=== PATIENT | female | born 1995 | race Caucasian/White ===

== ENCOUNTER 2016-12-20 08:01 | Emergency (ER) | payer BC ==
[~2016-12-20] VITALS: Ht 167.6 cm; Wt 69.4 kg
[2016-12-20 08:08] VITALS: Ht 167.6 cm; Wt 69.4 kg
[2016-12-20] MEDS ORDERED: ACETAMINOPHEN 500 MG TAB PO STA (08:44)
--- NOTE | 2016-12-20 09:19 | DIAGNOSTIC IMAGING REPORT ---
CT HEAD WITHOUT CONTRAST (CT) CLINICAL HISTORY: Head pain status post trauma COMPARISON STUDY: No previous studies for comparison. TECHNIQUE: Axial CT of the brain is performed from the vertex to the skull base. IV contrast was not administered for this examination. CT DOSE: FINDINGS: No intra or extra-axial mass lesions are visualized. There is no CT evidence of acute cortical infarction. There is no evidence of midline shift. There is no acute hemorrhage. No calvarial fractures are visualized. There is left periorbital edema. There is no evidence of pathologic ventricular dilatation. There is no evidence of acute sinusitis IMPRESSION: Left periorbital edema. Otherwise normal noncontrast head CT. Electronically signed by: Bulmaro Marie M.D. 12/20/2016 9:17 AM Dictated Date/Time: 12/20/2016 9:16 AM
--- NOTE | 2016-12-20 09:24 | DIAGNOSTIC IMAGING REPORT ---
CT FACIAL BONES-MXILLOFAC WITHOUT CT DOSE: 782.93 mGy.cm CLINICAL HISTORY: Left facial pain status post trauma COMPARISON STUDY: No previous studies for comparison. TECHNIQUE: Helical images were acquired in the transverse plane. The study was reviewed and analyzed on the independent 3-D workstation. The pterygoid plates appear intact. The zygomatic arches appear intact. The globes appear intact. There is no evidence of orbital emphysema. There is left periorbital edema. There are small air bubbles in the left premaxillary soft tissues The orbital roa and floor appear intact. The mandibular condyles appear intact. IMPRESSION: 1. No facial fractures identified. 2. Left periorbital and premaxillary edema. Small air bubbles in the soft tissues, likely secondary to a laceration. Electronically signed by: Bulmaro Marie M.D. 12/20/2016 9:22 AM Dictated Date/Time: 12/20/2016 9:18 AM
[2016-12-20] MEDS ORDERED: MULT-506 PO (09:25)
[2016-12-20] MEDS ORDERED: XYLOCAINE 1%/SOD BICARB 20 ML VIAL INFIL ONE (09:30)
[2016-12-20 09:39] VITALS: TEMP 36.9
--- NOTE | 2016-12-20 10:45 | EMERGENCY ROOM VISIT NOTE ---
ED Visit Note First contact with patient: 08:21 CHIEF COMPLAINT: Left facial injury 6 hours ago HISTORY OF PRESENT ILLNESS: Patient is an otherwise healthy 21-year-old white female who presents to the emergency department accompanied by friends for evaluation of left-sided facial trauma after a mechanical fall early this morning. Patient admits to drinking alcohol, that was in a bathroom and states that the floor was wet. She fell and hit the left side of her face on the sink. She remembers being in the bathroom, then remembers people tending to her on the floor. She had bleeding from the left side of her face. Friends who were with her at that time a company her now and they deny that she lost consciousness. There was no seizure-like behavior. Patient was walked home by a friend, and went to bed. When she woke up this morning she applied ice to her face. She complains of a mild generalized headache, but primarily left- sided facial discomfort and tightness due to the swelling and bruising. The left eye is almost completely swollen shut, but she denies any left eye pain or changes in vision. She denies any neck pain, nausea or vomiting. No difficulty with balance, speech or coordination and her friends state that she has been acting appropriately since they have been with her this morning. She denies any chipped or loose teeth, and states that the bite does not feel off when she opens and closes her jaw. She does not believe she experienced any epistaxis REVIEW OF SYSTEMS: Review of systems as per HPI. All other systems reviewed were negative. 10 systems reviewed. PMH: Electronic medical records are reviewed and summarized as above/below. See Problem List. Tetanus is up-to-date. SOCIAL HISTORY: Patient lives at home. College student. Nonsmoker, social EtOH. PHYSICAL EXAM: Vital Signs: Reviewed Nurse's notes. GENERAL: Patient is a pleasant, well-appearing 21-year-old white female who is awake and alert and in no acute distress. A male and female friend are at the bedside. HEENT: Head - normocephalic and atraumatic. Pupils are equal, round, and reactive to light. Extraocular eye muscles are intact and sclera are anicteric. Ears - bilaterally patent canals with no evidence of hemotympanum. Nose - moist nasal mucosa without evidence of trauma or discharge. Mouth - moist buccal mucosa with no trauma to the teeth or signs of malocclusion. Face: The patient has significant left facial swelling, and ecchymosis primarily in the left periorbital area. She has a small abrasion noted to the left upper eyelid, and a 1.5 cm laceration on the left cheek, lateral to the nose near the nasolabial fold. Wound edges are well approximated with no active bleeding. Slight granulation tissue is present. The patient has discomfort to palpation over the left zygomatic and the left orbital bones. She does not have any pain over the mandible. Neck: The neck is supple and there is no pain to palpation over the posterior cervical spine and no obvious step-offs or deformities. There is no JVD or tracheal deviation. Extremities: No obvious trauma, deformities, contusions, or edema. There are easily palpable peripheral pulses. Neuro: The patient is awake and alert and easily able to follow commands. She has a odor of alcohol on her breath but clinically is not intoxicated. Muscle strength is 5 out of 5 in all 4 extremities. Otherwise, neuro exam is unremarkable. PROCEDURE NOTE: Laceration on the left cheek was cleansed with saline and Betadine and irrigated thoroughly. Wound was anesthetized with 1% plain buffered lidocaine. Wound was explored thoroughly and there is no evidence for foreign body. Wound was meticulously reapproximated using 5, 6-0 nylon sutures. EMERGENCY DEPARTMENT COURSE: The patient was seen and evaluated as above. Her old records are reviewed. She presents to the emergency department for evaluation of a suspected mechanical fall, which appears to be related to alcohol consumption. Her history is not consistent with syncope, seizure or arrhythmia and her friends who were present corroborates this story. She has isolated trauma noted to the left side of her face. Head and maxillofacial CT scans were obtained, and were negative for acute intracranial bleed, skull or facial bony fractures. She did have a laceration to the left cheek that was repaired as noted above. She was medicated with acetaminophen in the emergency department and given oral fluids. Ice was also applied to the face. Conservative care measures were discussed. Wound care measures were outlined. She was given contact information for local plastic surgery for follow-up if she would like the wound to be evaluated. She was also educated on the signs or symptoms for which she should return to the emergency department. She was discharged home into the care of her friends in good condition. Differential diagnoses entertained included facial contusion, laceration, facial bony fractures, dental injury, closed head injury, skull fracture, acute intracranial bleed, among others. CT HEAD WITHOUT CONTRAST (CT) CLINICAL HISTORY: Head pain status post trauma COMPARISON STUDY: No previous studies for comparison. TECHNIQUE: Axial CT of the brain is performed from the vertex to the skull base. IV contrast was not administered for this examination. CT DOSE: FINDINGS: No intra or extra-axial mass lesions are visualized. There is no CT evidence of acute cortical infarction. There is no evidence of midline shift. There is no acute hemorrhage. No calvarial fractures are visualized. There is left periorbital edema. There is no evidence of pathologic ventricular dilatation. There is no evidence of acute sinusitis IMPRESSION: Left periorbital edema. Otherwise normal noncontrast head CT. CT FACIAL BONES-MXILLOFAC WITHOUT CT DOSE: 782.93 mGy.cm CLINICAL HISTORY: Left facial pain status post trauma COMPARISON STUDY: No previous studies for comparison. TECHNIQUE: Helical images were acquired in the transverse plane. The study was reviewed and analyzed on the independent 3-D workstation. The pterygoid plates appear intact. The zygomatic arches appear intact. The globes appear intact. There is no evidence of orbital emphysema. There is left periorbital edema. There are small air bubbles in the left premaxillary soft tissues The orbital roa and floor appear intact. The mandibular condyles appear intact. IMPRESSION: 1. No facial fractures identified. 2. Left periorbital and premaxillary edema. Small air bubbles in the soft tissues, likely secondary to a laceration. Problem List Surgical Problems: (1) H/O wisdom tooth extraction Status: Resolved Current/Historical Medications Scheduled Multivitamin (Multivitamin), 1 TAB PO DAILY Allergies Coded Allergies: No Known Allergies (Unverified , 12/20/16) Vital Signs Date Time Temp Pulse Resp B/P Pulse Ox O2 Delivery O2 Flow Rate FiO2 12/20/16 10:55 78 16 110/74 98 12/20/16 09:39 36.9 97 16 119/74 98 12/20/16 08:08 36.9 104 18 138/91 97 Room Air Medications Administered Medications (Trade) Dose Ordered Sig/Leesa Route Start Time Stop Time Status Last Admin Dose Admin Acetaminophen (Tylenol Tab) 1,000 mg NOW STAT PO 12/20/16 08:44 12/20/16 08:45 DC 12/20/16 08:58 1,000 MG Departure Information Impression Primary Impression: Facial contusion Additional Impressions: Facial laceration Fall Referrals No Doctor, Assigned (PCP) Sanjuana James MD Patient Instructions My [facility] Additional Instructions Keep wound clean and dry. Do not allow any crusting or dried blood to accumulate on sutures. Clean gently with a mild soap and water daily. Use an antibiotic ointment for 3-4 days, then let wound dry. Suture removal in 6-7 days. Return sooner for any signs of infection (increasing redness, swelling, drainage). Ice and elevate for swelling and pain. Ibuprofen 600 mg and Tylenol 1000 mg every 6 hrs for pain. Rest today and get a full 8-10 hrs of sleep tonight. Continue current medications. Ibuprofen(Motrin, Advil) may be used for fever or pain. Use 600mg every six hours as needed. Take with food. Avoid using more than 2400mg in a 24 hour period. Do not use 2400mg per day for more than three consecutive days without physician direction. Prolonged inappropriate use can lead to stomach upset or ulcers. (AND/OR) Acetaminophen(Tylenol) may be used for fever or pain. Use 1000mg every six hours as needed. Avoid using more than 3000mg in a 24 hour period. Return to the ER for passing out, worsening headache, vision problems, neck stiffness/pain, fevers, vomiting, worsening of your condition, or as needed. Follow up with plastic surgery in 6-7 days for suture removal and further care for your facial laceration. Problem Qualifiers
[2016-12-20 10:55] VITALS: BP 110/74; PULSE 78; O2SAT 98
== END 2016-12-20 10:55 | disposition home or self-care (01) ==
LOC: C.EDB 08:03
DX: S00.83XA Contusion of other part of head, initial encounter (principal); S01.81XA Laceration without foreign body of other part of head, initial encounter; W19.XXXA Unspecified fall, initial encounter